=== PATIENT | male | born 1990 | race Hispanic/Latino ===

== ENCOUNTER 2021-08-21 03:26 | Emergency (ER) | payer OTHER ==
[~2021-08-21] VITALS: Ht 177.8 cm; Wt 99.8 kg
[2021-08-21 03:40] VITALS: BP 135/72
[2021-08-21] MEDS ORDERED: TETANUS/DIPHTHERIA TOXOID [ADULT] 0.5 ML VIAL IM ONE (04:20)
[2021-08-21] MEDS ORDERED: DIPH,PERTUSS(ACELL),TET VAC/PF 0.5 ML VIAL IM ONE (04:30)
[2021-08-21] MEDS ORDERED: BUPIVACAINE/PF 0.5% 30ML VIAL ONE (04:31)
[2021-08-21] MEDS ORDERED: DOXYCYCLINE HYCLATE 100 MG TABLET PO SCH (05:30)
[2021-08-21] MEDS ORDERED: DOXY-336 PO (05:37)
== END 2021-08-21 05:46 | disposition home or self-care (01) ==
LOC: EDH 03:26
DX: S61.214A Laceration without foreign body of right ring finger without damage to nail, initial encounter (principal); Z88.0 Allergy status to penicillin; W54.0XXA Bitten by dog, initial encounter; Y93.89 Activity, other specified; Y92.89 Other specified places as the place of occurrence of the external cause; Y99.8 Other external cause status
CPT/HCPCS: 12001; 73130; 90471; 90714; 99283; J3490